=== PATIENT | female | born 1980 | race Caucasian/White ===

== ENCOUNTER 2021-06-04 23:45 | Emergency (ER) | payer OTHER ==
[~2021-06-04] VITALS: Ht 157.5 cm; Wt 71.7 kg
[2021-06-05] MEDS ORDERED: ONDANSETRON 4 MG/2 ML VIAL IVP ONE
[2021-06-05] MEDS ORDERED: MORPHINE SULFATE 4 MG/ML SYR IVP ONE
[2021-06-05 00:03] VITALS: BP 115/71
--- NOTE | 2021-06-05 00:10 | NUR ---
PT TAKEN TO CHAIR
--- NOTE | 2021-06-05 00:29 | NUR ---
PT MOVED TO ER BED 6
--- NOTE | 2021-06-05 00:40 | NUR ---
20G IV CATH RAC.
[2021-06-05 00:47] LABS: BASOPHILS % (AUTO) 0.2 % (0.0-2.0); EOSINOPHILS # (AUTO) 0.1 K/uL (0-0.4); EOSINOPHILS % (AUTO) 1.3 % (0.0-4.0); HEMATOCRIT 34.3 % (36-48); HEMOGLOBIN 11.8 g/dL (12.0-16.0); LYMPHOCYTES # (AUTO) 2.6 K/uL (2.5-16.5); LYMPHOCYTES % (AUTO) 30.1 % (20.5-51.1); MEAN CORPUSCULAR HEMOGLOBIN 31 pg (27-31); MEAN CORPUSCULAR HGB CONC 35 g/dL (33-37); MONOCYTES # (AUTO) 0.7 K/uL (0.8-1.0); MONOCYTES % (AUTO) 7.6 % (1.7-9.3); NEUTROPHILS # (AUTO) 5.3 K/uL (1.8-7.7); NEUTROPHILS % (AUTO) 60.8 % (42.2-75.2); PLATELET COUNT (AUTO) 263 K/uL (140-450); RED BLOOD CELL COUNT(AUTO) 3.81 MIL/uL (4.20-5.40); RED CELL DISTRIBUTION WIDTH 14.6 % (11.6-13.7); WHITE BLOOD COUNT (AUTO) 8.8 K/uL (4.8-10.8)
--- NOTE | 2021-06-05 00:48 | NUR ---
Ultrasound at bedside.
[2021-06-05 01:33] LABS: APPEARANCE,URINE CLEAR (CLEAR); BILIRUBIN,URINE NEGATIVE (NEGATIVE); BLOOD, URINE NEGATIVE (NEGATIVE); COLOR,URINE YELLOW (YELLOW); LEUKOCYTE ESTERASE ,URINE NEGATIVE (NEGATIVE); NITRITE, URINE NEGATIVE (NEGATIVE); UGLUCOSE NEGATIVE (NEGATIVE)
[2021-06-05 01:34] LABS: ALBUMIN 3.1 g/dL (3.4-5.0); ANION GAP 13.2 (8-16); CARBON DIOXIDE 23.7 mmol/L (21-32); CREATININE 0.5 mg/dL (0.6-1.3); POTASSIUM 3.9 mmol/L (3.5-5.1); TOTAL BILIRUBIN 0.2 mg/dL (0.0-1.0)
--- NOTE | 2021-06-05 04:12 | NUR ---
PT RESTING IN BED, U/S RESULTS PENDING. PATIENTS MOTHER AT BEDSIDE
--- NOTE | 2021-06-05 04:55 | NUR ---
DR NGUYEN AT BEDSIDE, PROVIDING D/C PAPERWORK.
[2021-06-05 04:57] VITALS: BP 115/71
--- NOTE | 2021-06-05 04:57 | NUR ---
Patient discharged with v/s stable. Written and verbal after care instructions given and explained. Patient verbalized understanding. Ambulatory with steady gait. All questions addressed prior to discharge. Advised to follow up with PMD.
== END 2021-06-05 04:57 | disposition home or self-care (01) ==
LOC: MED 23:45
DX: O26.891 Other specified pregnancy related conditions, first trimester (principal); R10.9 Unspecified abdominal pain; Z3A.01 Less than 8 weeks gestation of pregnancy; Z98.890 Other specified postprocedural states
CPT/HCPCS: 36415; 76805; 80053; 81003; 84702; 85025; 86900; 86901; 87040; 96374; 99283; J2405; Q0092; J2270